=== PATIENT | female | born 1970 | race Caucasian/White ===

== ENCOUNTER 2016-09-18 12:37 | Emergency (ER) | payer OTHER ==
[~2016-09-18 12:37] MED LIST: BENEDRYL; DULO30CA2 PO; PRED20TA PO; [UNRECOGNIZED DRUG - OTHER]
[2016-09-18 12:45] VITALS: BP 134/63
[2016-09-18 13:30] LABS: BACTERIA,URINE 0 /HPF (0-FEW); BILIRUBIN,URINE NEG (NEG); CLARITY,URINE CLEAR; COLOR,URINE STRAW; GLUCOSE,URINE NEG (NEG); NITRITE,URINE NEG (NEG); RBC,URINE 0 /HPF (0-2); SQUAMOUS EPITHELIAL CELL,UR OCC /LPF; U PREG PATIENT NEGATIVE (NEG); UROBILINOGEN,URINE 0.2 mg/dL (0.2 mg/dL)
[2016-09-18] MEDS ORDERED: CYCL5TAB PO (13:44)
[2016-09-18] MEDS ORDERED: HYDR-971 PO (13:44)
--- NOTE | 2016-09-18 13:44 | PHYS DOC ---
Past History Past Medical History: Anxiety, Depression, Heart Disease, Other Past Surgical History: Other Alcohol Use: Rarely Drug Use: None Adult General Chief Complaint Chief Complaint: BACK PAIN OR INJURY HPI HPI Patient is a 46 year old female who presents with lower back pain. The patient reports 3 day history of pain after moving. Doesn't remember a specific injury but woke up one morning with pain. She reports pain radiates to left leg & she has numbness to that leg. She reports dysuria & occasional urinary incontinence. She also reports bowel incontinence. She denies saddle anesthesia. Denies fevers/chills, abdominal pain, lower extremity weakness. She states previous history of cauda equina syndrome requiring emergency surgery , chart indicates disc herniation with radiculopathy for which she underwent discectomy. Chart also indicates history of chronic urinary incontinence. Her neurosurgeon was Dr. Purvis. Review of Systems Review of Systems Constitutional: Denies fever or chills HENT: Denies nasal congestion or sore throat Respiratory: Denies cough or shortness of breath Cardiovascular: Denies chest pain or edema GI: Denies abdominal pain, nausea, vomiting, bloody stools or diarrhea : Denies dysuria or hematuria . Reports urinary incontinence Musculoskeletal: Port's back pain, denies joint pain Integument: Denies rash or skin lesions Neurologic: Denies headache, reports left lower extremity numbness Allergies Allergies Allergies Coded Allergies Type Severity Reaction Last Updated Verified iodine Allergy Severe rash,respiratory 07/14/13 Yes Uncoded Allergies Type Severity Reaction Last Updated Verified IV CONTRAST Allergy Severe 07/14/13 Physical Exam Physical Exam Constitutional: Well developed, well nourished, no acute distress, non-toxic appearance. HENT: Normocephalic, atraumatic, bilateral external ears normal, oropharynx moist, nose normal. Eyes: conjunctiva normal, no discharge. Neck: supple, no stridor. Cardiovascular: RRR, no murmurs, no edema. Lungs & Thorax: LCTAB, no wheezing, no respiratory distress. Abdomen: soft, nontender, nondistended. Skin: Warm, dry, no erythema, no rash. Back: lumbar spine tenderness L3-L5, no step offs, generalized paraspinous muscle tenderness Extremities: No tenderness, no edema. distal pulses palpable bilateral LE Neurologic: Alert and oriented X 3, no focal deficits noted. symmetric strength to LE, decreased sensation to light touch to lateral left lower leg Psychologic: Affect normal, judgement normal, mood normal. Current Patient Data Vital Signs Vital Signs Date Time Temp Pulse Resp B/P (MAP) Pulse Ox O2 Delivery O2 Flow Rate FiO2 09/18/16 12:45 98.4 72 22 99 Room Air Lab Results Laboratory Tests Test 09/18/16 13:05 Urine Collection Type Unknown Urine Color Straw Urine Clarity Clear Urine pH 6.5 Urine Specific [place] <=1.005 Urine Protein Neg (NEG-TRACE) Urine Glucose (UA) Neg mg/dL (NEG) Urine Ketones (Stick) Neg mg/dL (NEG) Urine Blood Small (NEG) Urine Nitrite Neg (NEG) Urine Bilirubin Neg (NEG) Urine Urobilinogen Dipstick 0.2 mg/dL (0.2 mg/dL) Urine Leukocyte Esterase Small (NEG) Urine RBC 0 /HPF (0-2) Urine WBC 1-4 /HPF (0-4) Urine Squamous Epithelial Cells Occ /LPF Urine Bacteria 0 /HPF (0-FEW) Urine Test Negative (NEG) EKG EKG [] Radiology/Procedures Radiology/Procedures [] Course & Med Decision Making Course & Med Decision Making Pertinent Labs and Imaging studies reviewed. (See chart for details) The patient presents with back pain. History concerning for cauda equina syndrome. I recommended transfer for urgent MRI. She refuses XR or CT here, states she doesn't have time for MRI today, might try to follow up later this week if symptoms persist. She states she "walked around for weeks" previously with cauda equina syndrome prior to previous surgery. She is well appearing here & some elements of history of previous events are inconsistent with what I see in the chart, for instance she has history of chronic urinary incontinence. I certainly think MRI would be indicated, discussed risks of refusing appropriate workup, including worsening condition, undiagnosed condition, possibly . She voices understanding, wants to go home. Gave darlene & damien. Follow up IDANIA with Dr. Purvis or seek evaluation at a facility with MRI capability. She is in stable condition. [] Dragon Disclaimer Dragon Disclaimer This chart was dictated in whole or in part using Voice Recognition software in a busy, high-work load, and often noisy Emergency Department environment. It may contain unintended and wholly unrecognized errors or omissions. Departure Departure: Impression: Primary Impression: Back pain Disposition: HOME, SELF-CARE Condition: STABLE Referrals: ROSEMARY BECK MD (PCP) YESSENIA PURVIS MD Patient Instructions: Back Pain, Adult, [id number] Additional Instructions: You were seen in the emergency department today for back pain. Your urine test was normal. Your symptoms are concerning for cauda equina syndrome & it was recommended that you have MRI performed today. You declined the offered test. This would be considered a neurosurgical emergency. You can take flexeril & norco for pain but it would be in your best interest to follow up as soon as possible with Dr. Purvis in order to undergo MRI evaluation. [facility] does not have MRI capability. Scripts Hydrocodone Bit/Acetaminophen (NORCO 5-325 TABLET) 1 Each Tablet 1-2 TAB PO Q4-6HRS Y for SEVERE PAIN, #10 TAB Prov: YOGI WILL MD 09/18/16 Cyclobenzaprine Hcl (CYCLOBENZAPRINE HCL) 5 Mg Tablet 1 TAB PO TID, #10 TAB Prov: YOGI WILL MD 09/18/16 YOGI WILL MD Sep 18, 2016 13:44
== END 2016-09-18 14:04 | disposition home or self-care (01) ==
LOC: ER 12:37
DX: M54.5 Low back pain (principal); R20.0 Anesthesia of skin; R30.0 Dysuria; I51.9 Heart disease, unspecified; Z88.8 Allergy status to other drugs, medicaments and biological substances; Z91.041 Radiographic dye allergy status
CPT/HCPCS: 81001; 81025; 87086; 99284